=== PATIENT | male | born 1965 | race Caucasian/White ===

== ENCOUNTER 2017-09-06 20:40 | Inpatient (IN) | payer OTHER ==
[~2017-09-06] VITALS: Ht 172.7 cm; Wt 79.4 kg
[2017-09-06 20:54] LABS: URINE BILIRUBIN NEGATIVE (Negative); URINE BLOOD NEGATIVE (Negative); URINE CLARITY CLEAR; URINE COLOR YELLOW; URINE GLUCOSE-RANDOM NEGATIVE (Negative); URINE KETONES NEGATIVE (Negative); URINE LEUKOCYTES-REFLEX NEGATIVE (Negative); URINE NITRITE-REFLEX NEGATIVE (Negative); URINE PROTEIN TRACE (Negative); URINE SPECIFIC GRAVITY >= 1.030 (1.005-1.030); URINE UROBILINOGEN 0.2 E.U./dl (0.2-1.0)
[2017-09-06 21:13] LABS: ABSOLUTE BASOPHILS 0.1 thou/uL (0.0-0.2); ABSOLUTE EOSINOPHILS 0.2 thou/uL (0.0-0.7); ABSOLUTE LYMPHOCYTES 2.1 thou/uL (0.8-5.3); ABSOLUTE MONOCYTES 0.6 thou/uL (0.0-1.2); ABSOLUTE NEUTROPHILS 12.1 thou/uL (1.6-8.1); BASOPHILS 0.8 %; EOSINOPHILS 1.2 %; HEMATOCRIT 43.4 % (42.0-52.0); HEMOGLOBIN 14.5 gm/dL (14.0-18.0); LYMPHOCYTES 13.9 %; MCHC 33.3 g/dL (28.0-37.0); MCV 96.1 fL (80.0-100.0); MONOCYTES 4.2 %; MPV 9.2 fl. (7.2-11.1); NUCLEATED RBCS 0 /100WBC; PLATELET COUNT* 226 thou/uL (150-400); POLYS 79.9 %; RBC 4.52 mil/uL (4.50-6.00); RDW-CV 13.6 % (10.5-14.5); WBC 15.1 thou/uL (4.0-11.0)
[2017-09-06 21:19] LABS: CALCIUM 8.9 mg/dL (8.5-10.1); CREATININE 1.3 mg/dL (0.6-1.3); POTASSIUM 4.1 mmol/L (3.5-5.1)
[2017-09-06 21:23] LABS: ALBUMIN 3.6 g/dL (3.4-5.0); TOTAL BILIRUBIN 0.2 mg/dL (<0.1-1.0); TOTAL PROTEIN 7.2 g/dL (6.4-8.2)
[2017-09-06 23:21] VITALS: BP 121/65
[2017-09-06 23:30] VITALS: BP 123/67
--- NOTE | 2017-09-06 23:30 | NUR ---
PATIENT ARRIVED ON UNIT AT 2330 VIA EMERGENCY DEPARTMENT CART. TRANFERRED TO UNIT BED. ADMISSION ASSESSMENT COMPLETE CHARTED. ORIENTED TO UNIT AND CONTROLS. IV FLUIDS INFUSING PER ORDERS. RESTING COMFORTABLY IN BED. CALL LIGHT WITHIN REACH. NURSING WILL CONTINUE TO MONITOR.
--- NOTE | 2017-09-07 04:50 | NUR ---
PATIENT REMAINS ALERT AND ORIENTED X4 THROUGHOUT SHIFT. VITAL SIGNS STABLE ON ROOM AIR. IV PATENT IN THE LEFT FOREARM INFUSING AT 150 ML/HR PER ORDERS. PATIENT HAS MAINTAINED NPO STATUS SINCE MIDNIGHT. DENIES PAIN OR NAUSEA UPON ARRIVAL TO UNIT AND HAS SLEPT THROUGHOUT NIGHT. REPOSITIONING SELF IN BED. TRANSFERS AD ELIZABETH TO THE RESTROOM. HOURLY ROUNDING COMPLETE. CALL LIGHT WITHIN REACH. NURSING WILL CONTINUE TO MONITOR.
[2017-09-07 07:30] VITALS: BP 108/68
[2017-09-07] MEDS ORDERED: FLOMAX0.4 MG PO (10:21)
[2017-09-07] MEDS ORDERED: NORCO 5-325 TA1 EACH PO (10:21)
[2017-09-07 10:29] VITALS: BP 108/68
[2017-09-07 15:36] VITALS: BP 108/68
--- NOTE | 2017-09-07 15:39 | NUR ---
PATIENT REMAINS A&OX4. VITAL SIGNS STABLE ON ROOM AIR. NO COMPLAINTS OF NAUSEA OR SOA. PO MEDICATIONS PRESCRIBED FOR PAIN MANAGEMENT. ALL PERSONAL ITEMS LEFT WITH PATIENT. DISCHARGE INSTRUCTIONS, PRESCRIPTIONS, NEW MEDICATION INFORMATION SENT WITH PATIENT. HOURLY ROUNDING MAINTAINED. LEFT FLOOR AT 1415.
--- NOTE | 2017-09-07 18:25 | NUR ---
ELVIRA BARFIELD HAS REVIEWED AND AGREES WITH STUDENT NURSES CHARTING THROUGHOUT SHIFT.
== END 2017-09-07 14:15 | disposition home or self-care (01) | DRG 694 ==
LOC: M.ERS 20:40 → M.TBA-ER 22:40 → M.ORTHSURG 22:40
PROVIDERS: Nurse Practitioner Family; ADMIT Internal Medicine
DX: N13.2 Hydronephrosis with renal and ureteral calculous obstruction (principal); Z88.6 Allergy status to analgesic agent; Z79.899 Other long term (current) drug therapy

== ENCOUNTER 2018-08-17 22:06 | Emergency (ER) | payer OTHER ==
[~2018-08-17] VITALS: Ht 172.7 cm; Wt 80.3 kg
[~2018-08-17 22:06] MED LIST: FLOMAX0.4 MG PO; NORCO 5-325 TA1 EACH PO
[2018-08-17 22:48] LABS: CALCIUM 8.7 mg/dL (8.5-10.1); CREATININE 1.1 mg/dL (0.6-1.3); POTASSIUM 3.3 mmol/L (3.5-5.1)
[2018-08-17 22:53] LABS: ALBUMIN 4.3 g/dL (3.4-5.0); TOTAL BILIRUBIN 0.4 mg/dL (<0.1-1.0); TOTAL PROTEIN 8.1 g/dL (6.4-8.2)
[2018-08-17 23:17] LABS: ABSOLUTE BASOPHILS 0.1 thou/uL (0.0-0.2); ABSOLUTE EOSINOPHILS 0.1 thou/uL (0.0-0.7); ABSOLUTE LYMPHOCYTES 2.9 thou/uL (0.8-5.3); ABSOLUTE MONOCYTES 0.5 thou/uL (0.0-1.2); ABSOLUTE NEUTROPHILS 8.6 thou/uL (1.6-8.1); BASOPHILS 0.6 %; HEMATOCRIT 47.9 % (42.0-52.0); HEMOGLOBIN 15.7 gm/dL (14.0-18.0); LYMPHOCYTES 23.9 %; MCH 31.7 pg (26.0-34.0); MCHC 32.8 g/dL (28.0-37.0); MCV 96.6 fL (80.0-100.0); MONOCYTES 4.2 %; MPV 9.5 fl. (7.2-11.1); NUCLEATED RBCS 0 /100WBC; PLATELET COUNT* 243 thou/uL (150-400); POLYS 70.3 %; RBC 4.96 mil/uL (4.50-6.00); RDW-CV 13.9 % (10.5-14.5); WBC 12.2 thou/uL (4.0-11.0)
[2018-08-18] MEDS ORDERED: HYDROCODON-ACE1 EAC8 PO (01:21)
[2018-08-18 01:54] VITALS: BP 130/73
== END 2018-08-18 01:57 | disposition home or self-care (01) ==
LOC: M.ERS 22:06
PROVIDERS: Emergency Medicine
DX: S32.010A Wedge compression fracture of first lumbar vertebra, initial encounter for closed fracture (principal); S52.511A Displaced fracture of right radial styloid process, initial encounter for closed fracture; Z88.5 Allergy status to narcotic agent; Z87.442 Personal history of urinary calculi; V29.9XXA Motorcycle rider (driver) (passenger) injured in unspecified traffic accident, initial encounter; Y93.89 Activity, other specified; Y92.481 Parking lot as the place of occurrence of the external cause; Y99.8 Other external cause status